=== PATIENT | female | born 2000 | race Caucasian/White ===

== ENCOUNTER 2021-05-12 06:51 | Emergency (ER) | payer SELFPAY ==
[~2021-05-12 06:51] MED LIST: TYLENOL W/CODEIN1 E1 PO
[2021-05-12 09:21] LABS: HEMOGLOBIN 13.3 gm/dl (12.3-15.3); RED BLOOD COUNT 4.61 M/UL (4.00-5.10); WHITE BLOOD COUNT 12.5 K/UL (4.5-11.0)
[2021-05-12 10:03] LABS: BUN/CREATININE RATIO 12 (0-10)
== END 2021-05-12 14:37 | disposition home or self-care (01) ==
LOC: ER1 06:51
PROVIDERS: Nurse Practitioner
DX: O20.8 Other hemorrhage in early pregnancy (principal); O99.331 Smoking (tobacco) complicating pregnancy, first trimester; F17.220 Nicotine dependence, chewing tobacco, uncomplicated; Z3A.13 13 weeks gestation of pregnancy; Z91.013 Allergy to seafood
CPT/HCPCS: 76815; 80048; 81001; 84702; 85025; 86850; 86900; 86901; 96372; 99284; J2790

== ENCOUNTER 2021-05-15 23:50 | Emergency (ER) | payer SELFPAY ==
[2021-05-16 00:20] LABS: HEMOGLOBIN 13.5 gm/dl (12.3-15.3); RED BLOOD COUNT 4.75 M/UL (4.00-5.10); WHITE BLOOD COUNT 15.1 K/UL (4.5-11.0)
[2021-05-16 00:39] LABS: BUN/CREATININE RATIO 15 (0-10)
== END 2021-05-16 01:52 | disposition home or self-care (01) ==
LOC: ER1 23:50
PROVIDERS: Family Medicine
DX: O20.9 Hemorrhage in early pregnancy, unspecified (principal); Z91.013 Allergy to seafood; Z3A.13 13 weeks gestation of pregnancy
CPT/HCPCS: 80048; 81001; 84702; 85025; 99284

== ENCOUNTER 2021-10-30 17:29 | Outpatient (CLI) | payer OTHER | END 2021-10-30 19:05 | disposition home or self-care (01) | LOC: GENOP 17:29 | DX: O62.9 Abnormality of forces of labor, unspecified (principal); Z3A.38 38 weeks gestation of pregnancy | CPT/HCPCS: G0463 ==

== ENCOUNTER 2021-11-09 16:14 | Inpatient (IN) | payer OTHER ==
[~2021-11-09] VITALS: Ht 157.5 cm; Wt 96.2 kg
[2021-11-09 16:56] LABS: HEMOGLOBIN 11.3 gm/dl (12.3-15.3); RED BLOOD COUNT 4.26 M/UL (4.00-5.10); WHITE BLOOD COUNT 9.5 K/UL (4.5-11.0)
[2021-11-09] MEDS ORDERED: CEPHALEXIN500 M1 PO (17:50)
[2021-11-09] MEDS ORDERED: PRENATAL TABLE1 EAC1 PO (17:52)
[2021-11-10] MEDS ORDERED: PERCOCET 5/325 T1 EA PO (21:20)
[2021-11-10] MEDS ORDERED: IBUPROFEN800 MG PO (21:20)
[2021-11-10] MEDS ORDERED: HEMOCYTE324 MG PO (21:20)
[2021-11-10] MEDS ORDERED: COLACE100 MG PO (21:20)
[2021-11-11 05:05] LABS: HEMOGLOBIN 10.5 gm/dl (12.3-15.3)
== END 2021-11-13 08:17 | disposition home or self-care (01) | DRG 788 ==
LOC: GENOP 16:14 → OB 16:34
PROVIDERS: Obstetrics & Gynecology; ADMIT Obstetrics & Gynecology
PROC: 10907ZC Drainage of Amniotic Fluid, Therapeutic from Products of Conception, Via Natural or Artificial Opening (ICD-10-PCS; 2021-11-10)
PROC: 10H07YZ Insertion of Other Device into Products of Conception, Via Natural or Artificial Opening (ICD-10-PCS; 2021-11-10)
PROC: 4A1H7CZ Monitoring of Products of Conception, Cardiac Rate, Via Natural or Artificial Opening (ICD-10-PCS; 2021-11-10)
PROC: 10H073Z Insertion of Monitoring Electrode into Products of Conception, Via Natural or Artificial Opening (ICD-10-PCS; 2021-11-10)
PROC: 3E0234Z Introduction of Serum, Toxoid and Vaccine into Muscle, Percutaneous Approach (ICD-10-PCS; 2021-11-10)
PROC: 10D00Z1 Extraction of Products of Conception, Low, Open Approach (ICD-10-PCS; principal; 2021-11-10 20:15)
DX: O76 Abnormality in fetal heart rate and rhythm complicating labor and delivery (principal); O99.344 Other mental disorders complicating childbirth; F41.9 Anxiety disorder, unspecified; F32.A Depression, unspecified; E88.01 Alpha-1-antitrypsin deficiency; O99.284 Endocrine, nutritional and metabolic diseases complicating childbirth; O99.52 Diseases of the respiratory system complicating childbirth; J44.9 Chronic obstructive pulmonary disease, unspecified; O99.334 Smoking (tobacco) complicating childbirth; Z37.0 Single live birth; Z3A.39 39 weeks gestation of pregnancy; Z87.891 Personal history of nicotine dependence; Z82.49 Family history of ischemic heart disease and other diseases of the circulatory system; Z83.3 Family history of diabetes mellitus; Z81.8 Family history of other mental and behavioral disorders; Z84.2 Family history of other diseases of the genitourinary system; Z82.0 Family history of epilepsy and other diseases of the nervous system; Z23 Encounter for immunization
CPT/HCPCS: 36415; 59025; 81001; 82800; 85014; 85018; 85025; 85461; 86850; 86900; 86901; 90471; 90715; C9113; J0595; J0690; J1885; J2001; J2210; J2274; J2370; J2405; J2590; J2790; J2795

== ENCOUNTER 2021-11-15 11:45 | Inpatient (IN) | payer OTHER ==
[~2021-11-15] VITALS: Ht 157.5 cm; Wt 81.6 kg
[~2021-11-15 11:45] MED LIST changes: +CEPHALEXIN500 M1 PO; +COLACE100 MG PO; +HEMOCYTE324 MG PO; +IBUPROFEN800 MG PO; +PERCOCET 5/325 T1 EA PO; +PRENATAL TABLE1 EAC1 PO
[2021-11-15 12:45] LABS: HEMOGLOBIN 10.8 gm/dl (12.3-15.3); RED BLOOD COUNT 4.07 M/UL (4.00-5.10); WHITE BLOOD COUNT 11.1 K/UL (4.5-11.0)
[2021-11-15 13:12] LABS: BUN/CREATININE RATIO 15 (0-10)
[2021-11-16 07:14] LABS: HEMOGLOBIN 8.5 gm/dl (12.3-15.3); RED BLOOD COUNT 3.25 M/UL (4.00-5.10); WHITE BLOOD COUNT 15.7 K/UL (4.5-11.0)
[2021-11-16 07:50] LABS: BUN/CREATININE RATIO 29 (0-10)
[2021-11-16] MEDS ORDERED: AMOX TR-K CLV1 EAC4 PO (12:28)
== END 2021-11-16 14:44 | disposition home or self-care (01) | DRG 776 ==
LOC: ER1 11:45 → CDU 16:20 → OB 18:30
PROVIDERS: Emergency Medicine; ADMIT Obstetrics & Gynecology
DX: O86.12 Endometritis following delivery (principal); O86.20 Urinary tract infection following delivery, unspecified; N39.0 Urinary tract infection, site not specified; Z20.822 Contact with and (suspected) exposure to COVID-19; O99.53 Diseases of the respiratory system complicating the puerperium; O90.2 Hematoma of obstetric wound; E88.01 Alpha-1-antitrypsin deficiency; O90.81 Anemia of the puerperium; Z86.73 Personal history of transient ischemic attack (TIA), and cerebral infarction without residual deficits
CPT/HCPCS: ECHO; 36415; 71045; 80053; 81001; 82550; 82553; 83605; 83690; 83880; 84484; 85025; 85610; 85730; 87040; 87086; 93005; 93306; 96374; 96375; 96376; 99285; J1200; J1580; J1940; J2543; J2930; Q9967; U0002

== ENCOUNTER 2021-11-23 00:21 | Emergency (ER) | payer OTHER ==
[~2021-11-23 00:21] MED LIST changes: +AMOX TR-K CLV1 EAC4 PO
== END 2021-11-23 02:00 | disposition left against medical advice (07) ==
LOC: ER1 00:21
DX: Z53.21 Procedure and treatment not carried out due to patient leaving prior to being seen by health care provider (principal)

== ENCOUNTER 2021-12-23 12:12 | Emergency (ER) | payer OTHER ==
[2021-12-23 12:55] LABS: HEMOGLOBIN 12.9 gm/dl (12.3-15.3); RED BLOOD COUNT 4.92 M/UL (4.00-5.10); WHITE BLOOD COUNT 13.1 K/UL (4.5-11.0)
[2021-12-23 13:47] LABS: BUN/CREATININE RATIO 10 (0-10)
== END 2021-12-23 17:48 | disposition home or self-care (01) ==
LOC: ER1 12:12
PROVIDERS: Physician Assistant
DX: R10.2 Pelvic and perineal pain (principal); R74.01 Elevation of levels of liver transaminase levels; R00.0 Tachycardia, unspecified; R10.811 Right upper quadrant abdominal tenderness; R42 Dizziness and giddiness; Z91.013 Allergy to seafood; Z91.041 Radiographic dye allergy status
CPT/HCPCS: 71045; 71275; 80053; 81001; 82550; 82553; 83605; 84484; 85025; 85379; 87040; 87086; 93005; 96374; 96375; 99284; J1200; J2930; Q9967